=== PATIENT | male | born 1955 | race Caucasian/White ===

== ENCOUNTER 2018-02-24 18:56 | Emergency (ER) | payer BC ==
[~2018-02-24] VITALS: Ht 170.1 cm; Wt 90.7 kg
[~2018-02-24 18:56] MED LIST: KEFLEX500 MG PO
== END 2018-02-24 20:21 | disposition home or self-care (01) ==
LOC: ED 18:56
DX: S96.911A Strain of unspecified muscle and tendon at ankle and foot level, right foot, initial encounter (principal); W22.8XXA Striking against or struck by other objects, initial encounter; Y93.89 Activity, other specified; Y92.89 Other specified places as the place of occurrence of the external cause; Y99.8 Other external cause status